=== PATIENT | female | born 1995 | race African-American/Black ===

== ENCOUNTER 2017-03-16 23:18 | Emergency (ER) | payer MEDICAID ==
[~2017-03-16] VITALS: Ht 152.4 cm; Wt 54.0 kg
[2017-03-17 05:30] VITALS: BP 121/67
[2017-03-17] MEDS: ACETAMINOPHEN 325MG TABLET PO ONE (06:45)
[2017-03-17] MEDS: ACETAMINOPHEN 650MG/20.3ML UDC PO ONE (06:55)
[2017-03-17 07:07] LABS: CLARITY URINE TURBID (CLEAR); COLOR URINE YELLOW (YELLOW); KETONES URINE 1+ (NEGATIVE); LEUKOCYTE ESTERASE URINE 3+ (NEGATIVE); NITRITE URINE POSITIVE (NEGATIVE); OCCULT BLOOD URINE 2+ (NEGATIVE); PH URINE 5.5 (4.5-8.0); PROTEIN URINE 2+ (NEGATIVE); SPECIFIC GRAVITY URINE 1.014 (1.005-1.030); UROBILINOGEN URINE 0.2 E.U./dL (0.2-1.0)
== END 2017-03-17 08:09 | disposition home or self-care (01) ==
LOC: ER 23:18
DX: N12 Tubulo-interstitial nephritis, not specified as acute or chronic (principal); F17.200 Nicotine dependence, unspecified, uncomplicated; F12.10 Cannabis abuse, uncomplicated; Z98.890 Other specified postprocedural states; Z87.440 Personal history of urinary (tract) infections
CPT/HCPCS: 81001; 81025; 87077; 87086; 87186; 99284

== ENCOUNTER 2018-08-25 14:01 | Emergency (ER) | payer MEDICAID ==
[~2018-08-25] VITALS: Ht 157.5 cm; Wt 50.0 kg
[2018-08-25] MEDS ORDERED: ACETAMINOPHEN 325MG TABLET PO PRN (15:30)
[2018-08-25 15:42] LABS: BASOPHILS % 0.3 % (0.0-2.0); EOSINOPHILS % 0.1 % (0.0-5.0); HEMATOCRIT. 37.7 % (36.0-48.0); HEMOGLOBIN. 12.8 g/dL (12.0-16.0); LYMPHOCYTES % 11.3 % (20.0-50.0); MEAN CORPUSCULAR HEMOGLOBIN 29.2 pg (28.0-32.0); MEAN CORPUSCULAR VOLUME 86.1 fL (81.0-99.0); NEUTROPHILS % 84.3 % (40.0-76.0); PLATELET 222 x1000/uL (130-400); RED BLOOD CELL COUNT 4.38 mill/uL (4.2-5.4); RED CELL DISTRIBUTION WIDTH 12.2 % (11.6-14.6)
[2018-08-25 15:49] LABS: CHLORIDE 105 mEq/L (98-107)
[2018-08-25] MEDS ORDERED: SODIUM CHLORIDE 0.9% 1,000 ML IV ONE (15:49)
[2018-08-25 15:57] LABS: CLARITY URINE CLOUDY (CLEAR); COLOR URINE AMBER (YELLOW); KETONES URINE 4+ (NEGATIVE); LEUKOCYTE ESTERASE URINE 1+ (NEGATIVE); NITRITE URINE NEGATIVE (NEGATIVE); OCCULT BLOOD URINE NEGATIVE (NEGATIVE); PH URINE 7.5 (4.5-8.0); PROTEIN URINE 2+ (NEGATIVE); SPECIFIC GRAVITY URINE 1.031 (1.005-1.030)
[2018-08-25] MEDS ORDERED: FAMOTIDINE 20MG/2ML VIAL IV ONE (16:00)
[2018-08-25] MEDS ORDERED: ONDANSETRON HCL 4MG/2ML INJ IV ONE (16:00)
[2018-08-25 16:11] LABS: B-HCG QUANTITATIVE 119198 mIU/mL (<3)
[2018-08-25] MEDS ORDERED: POTASSIUM CHLORIDE 20MEQ TABLET SR PO ONE (17:15)
[2018-08-25 18:00] VITALS: BP 118/82
== END 2018-08-25 18:21 | disposition home or self-care (01) ==
LOC: ER 14:01
DX: O21.0 Mild hyperemesis gravidarum (principal); O23.41 Unspecified infection of urinary tract in pregnancy, first trimester; O26.891 Other specified pregnancy related conditions, first trimester; E87.6 Hypokalemia; Z3A.01 Less than 8 weeks gestation of pregnancy
CPT/HCPCS: 36415; 76700; 76801; 80053; 81003; 83690; 84702; 85025; 96361; 96374; 96375; 99284; J2405; J3490; J7030; Z7610

== ENCOUNTER 2024-10-07 18:32 | Emergency (ER) | payer MEDICAID ==
[~2024-10-07] VITALS: Ht 165.1 cm; Wt 65.0 kg
[2024-10-07 18:34] VITALS: TEMP 37; O2SAT 98
[2024-10-07 19:27] LABS: HEMATOCRIT. 40.6 % (36.0-48.0); HEMOGLOBIN. 13.0 g/dL (12.0-16.0); MEAN PLATELET VOLUME 11.6 fl (7.4-10.4); PLATELET 227 x1000/uL (130-400); RED BLOOD CELL COUNT 4.59 mill/uL (4.2-5.4); RED CELL DISTRIBUTION WIDTH 13.5 % (11.6-14.6)
[2024-10-07 19:35] LABS: CREATININE 0.9 mg/dL (0.6-1.0); UREA NITROGEN BLOOD 11 mg/dL (9-23)
[2024-10-07 19:59] LABS: LYMPHOCYTES % MANUAL 7.0 % (20.0-60.0); MONOCYTES % MANUAL 4.0 % (2.0-8.0); NEUTROPHILS % MANUAL 89.0 % (45.0-75.0); PLATELET ESTIMATE NORMAL
[2024-10-07] MEDS: SODIUM CHLORIDE 0.9% 1,000 ML IV ONE (21:20)
[2024-10-07] MEDS: PANTOPRAZOLE SODIUM 40 MG/VIAL IV ONE (21:27)
[2024-10-07] MEDS: MAGNESIUM/ALUMINUM HYDROXIDE/SIMETHICONE 30ML UDC PO ONE (21:27)
[2024-10-07 22:16] LABS: CLARITY URINE CLEAR (CLEAR); COLOR URINE YELLOW (YELLOW); GLUCOSE URINE NEGATIVE (NEGATIVE); KETONES URINE 4+ (NEGATIVE); LEUKOCYTE ESTERASE URINE 1+ (NEGATIVE); NITRITE URINE NEGATIVE (NEGATIVE); OCCULT BLOOD URINE 3+ (NEGATIVE); PH URINE 6.5 (4.5-8.0); PROTEIN URINE 1+ (NEGATIVE); SPECIFIC GRAVITY URINE 1.025 (1.005-1.030); UROBILINOGEN URINE 1.0 E.U./dL (0.2-1.0)
[2024-10-07 22:27] LABS: BACTERIA URINE TRACE; SQUAMOUS EPITHELIAL CELL URINE FEW /lpf (RARE/1+)
[2024-10-07] MEDS: MORPHINE SULFATE 4 MG/ML INJ (FOR IV/IM USE) IV ONE (22:41)
[2024-10-07] MEDS: ONDANSETRON HCL 4MG/2ML INJ IV ONE (22:41)
[2024-10-07 22:45] VITALS: BP 130/89; PULSE 85; RESP 16; O2SAT 100
[2024-10-08] MEDS ORDERED: PANT40SU MT (00:49)
[2024-10-08] MEDS ORDERED: NITR-87 MT (00:49)
[2024-10-08] MEDS ORDERED: TOPUD MT (00:49)
[2024-10-08] MEDS ORDERED: PIPERACILLIN/TAZO 3.375G/50ML 50 ML IV SCH (06:00)
== END 2024-10-08 00:58 | disposition home or self-care (01) ==
LOC: ER 18:32
DX: N39.0 Urinary tract infection, site not specified (principal); R10.9 Unspecified abdominal pain; Z79.899 Other long term (current) drug therapy; Z87.19 Personal history of other diseases of the digestive system; Z91.148 Patient's other noncompliance with medication regimen for other reason
CPT/HCPCS: 99285; 74176; 96374; 96375; 96361; 80048; 81003; 81025; 83605; 85025; 36415; J2405; J2470; J2270; J7030